=== PATIENT | male | born 1950 | race Caucasian/White ===

== ENCOUNTER 2023-12-10 12:29 | Outpatient (CLI) | payer OTHER, SELFPAY ==
--- NOTE | ~2023-12-10 | PE_ITS ---
EXAMINATION: PET_PETPSMAST_PT DATE: 12/10/2023 15:35 INDICATION: Prostate cancer. TECHNIQUE: 5.669 mCi of Ga-68 gozetotide was administered intravenously. Low dose computed tomography (CT) images were acquired from the base of the brain to the proximal thighs for attenuation correcti on and anatomic localization. Automated exposure control was employed. Dose-length product (DLP) was 927 mGy-cm. Positron emission tomography (PET) images were acquired in the same distribution. COMPARISON: None FINDINGS: Head/neck: There are no pathologically enlarged lymph nodes. Chest: There are few nodules in the lungs measuring up to 5 mm, likely benign. Calcified left hilar a nd mediastinal lymph nodes are consistent with old granulomatous disease. No pleural effusion. The he art size is normal. No pericardial effusion. Abdomen/pelvis/proximal thighs: There is diffuse hepatic steatosis. Calcifications of the liver is co nsistent with old granulomatous disease. The gallbladder, pancreas, adrenal glands, and left kidney a re normal. There is a 5.9 cm cyst in right kidney. There is a 3 mm stone in right kidney. There are c hanges of appendectomy. There are no pathologically enlarged lymph nodes. There is no free intraperit myesr fluid. There are changes of prostatectomy. There is a benign bone island in right ilium. IMPRESSION: 1. No evidence of metastatic disease. Reviewed, dictated and finalized at location A.
== END 2023-12-10 12:30 | disposition home or self-care (01) ==
DX: C61 Malignant neoplasm of prostate (principal)
CPT/HCPCS: 78815; A9596